=== PATIENT | female | born 1980 | race African-American/Black ===

== ENCOUNTER 2021-03-10 14:30 | Emergency (ER) | payer BC ==
[~2021-03-10] VITALS: Ht 162.6 cm; Wt 99.8 kg
[2021-03-10 14:34] VITALS: BP_SYST 125
[2021-03-10] MEDS ORDERED: IBUPROFEN 600 MG TABLET ONE (15:53)
[2021-03-10 15:54] VITALS: BP_SYST 125
[2021-03-10] MEDS ORDERED: IBUPROFEN 600 MG TABLET PO ONE (16:00)
== END 2021-03-10 16:11 | disposition home or self-care (01) ==
LOC: SED 14:30
DX: F41.9 Anxiety disorder, unspecified (principal); R06.02 Shortness of breath
CPT/HCPCS: 71045; 93005; 99283